=== PATIENT | male | born 1950 | race Caucasian/White ===

== ENCOUNTER 2022-12-25 20:01 | Inpatient (IN) | payer OTHER, MEDICAID ==
[~2022-12-25] VITALS: Ht 167.6 cm; Wt 77.1 kg
[2022-12-25 20:23] VITALS: BP_SYST 140
--- NOTE | 2022-12-25 20:29 | NUR ---
ER at bedside examining patient.
--- NOTE | 2022-12-25 20:29 | NUR ---
Patient triaged and placed in waiting room. VS checked and patient appears in no acute distress at this time. Accompanied by family, awaiting available bed, and MD notified of need for MSE.
--- NOTE | 2022-12-25 21:00 | NUR ---
Pt C/O right lower quadrant pain AOX4 VSS Able to make needs known family at bedside Will continue to monitor
[2022-12-25 21:21] LABS: BASOPHILS % (AUTO) 0.4 % (0.0-2.0); EOSINOPHILS % (AUTO) 0.2 % (0.0-4.0); HEMATOCRIT 35.2 % (36-54); HEMOGLOBIN 11.6 g/dL (14.0-18.0); LYMPHOCYTES # (AUTO) 0.7 K/uL (1.0-5.5); MEAN CORPUSCULAR HEMOGLOBIN 28 pg (27-31); MEAN CORPUSCULAR HGB CONC 33 % (32-36); MEAN CORPUSCULAR VOLUME 85 fL (79.0-98.0); MONOCYTES # (AUTO) 0.4 K/uL (0.0-1.0); MONOCYTES % (AUTO) 3.7 % (1.7-9.3); NEUTROPHILS # (AUTO) 10.7 K/uL (1.8-7.7); NEUTROPHILS % (AUTO) 89.7 % (40.0-70.0); PLATELET COUNT (AUTO) 279 K/uL (130-430); RED BLOOD CELL COUNT(AUTO) 4.16 MIL/uL (4.2-6.2); RED CELL DISTRIBUTION WIDTH 15.4 % (9.0-15.0); WHITE BLOOD COUNT (AUTO) 11.9 K/uL (4.8-10.8)
[2022-12-25 21:45] LABS: ANION GAP 11 (5-15); CALCIUM 8.6 mg/dL (8.4-11.0); CHLORIDE 101 mmol/L (98-107); CREATININE 1.58 mg/dL (0.55-1.30); GLUCOSE 206 mg/dL (70-99); UREA NITROGEN, BLOOD 21 mg/dL (8-21)
[2022-12-25 21:47] LABS: ALANINE AMINOTRANSFERASE 30 U/L (12-78); ALBUMIN 3.5 g/dL (3.4-4.8); ASPARTATE AMINOTRANSFERASE 18 U/L (10-37); LIPASE 35 U/L (73-393)
--- NOTE | 2022-12-25 21:50 | NUR ---
COVID SAMPLE COLLECTED AND SENT TO LAB
[2022-12-25] MEDS ORDERED: PIPERACILLIN/TAZO 3.375 GM in NS 50 ML IV ONE (22:15)
[2022-12-25] MEDS ORDERED: MORPHINE 4 MG INJ. 4 MG/ML VIAL IVP ONE (22:30)
[2022-12-25] MEDS ORDERED: ONDANSETRON HCL 4 MG/2 ML VIAL IVP ONE (22:30)
[2022-12-25 22:41] LABS: BILIRUBIN,URINE 1+ (NEGATIVE); BLOOD, URINE NEGATIVE (NEGATIVE); CLARITY/URINE CLEAR (CLEAR); COLOR,URINE YELLOW (YELLOW); GLUCOSE,URINE NEGATIVE (NEGATIVE); KETONES,URINE 1+ (NEGATIVE); LEUKOCYTE ESTERASE ,URINE NEGATIVE (NEGATIVE); NITRITE, URINE NEGATIVE (NEGATIVE); PROTEIN URINE 2+ (NEGATIVE)
[2022-12-25 22:54] LABS: BACTERIA,URINE None Seen /HPF (None Seen); RBC,URINE 0-3 /HPF (0-3); WBC,URINE 0-3 /HPF (0-3)
[2022-12-25] MEDS ORDERED: PIPERACILLIN/TAZOBACTAM 3.375 GM/VIAL (ZOSYN) IV ONE (23:21)
[2022-12-26] VITALS (9 sets, daily range): BP systolic 100–134
[2022-12-26] MEDS ORDERED: ONDANSETRON HCL 4 MG/2 ML VIAL IVP PRN ×2 (03:15→19:00)
[2022-12-26] MEDS ORDERED: D5/0.45 NS 1,000 ML IV ONE (03:15)
[2022-12-26] MEDS ORDERED: MORPHINE 2 MG/ML INJ. SYRINGE IVP PRN ×2 (03:15→03:30)
[2022-12-26] MEDS ORDERED: OMEG-158 PO (03:50)
[2022-12-26] MEDS ORDERED: ROSU20TA2 PO (03:51)
[2022-12-26] MEDS ORDERED: CALC-1263 PO (03:51)
[2022-12-26] MEDS ORDERED: ASCO500T20 PO (03:52)
[2022-12-26] MEDS ORDERED: TACR1CAP2 PO (03:52)
[2022-12-26] MEDS ORDERED: VITA200C70 PO (03:55)
[2022-12-26] MEDS ORDERED: AMLO5TAB4 PO (03:56)
[2022-12-26] MEDS ORDERED: ASPI-1393 PO (03:56)
[2022-12-26] MEDS ORDERED: CARV3.1246 PO (03:57)
[2022-12-26] MEDS ORDERED: DOCU-144 PO (03:57)
[2022-12-26] MEDS ORDERED: INSU100I73 SUBCUT (03:58)
[2022-12-26] MEDS ORDERED: INSU100V9 SQ (03:59)
[2022-12-26] MEDS ORDERED: CEL250 PO (04:00)
[2022-12-26] MEDS ORDERED: LISI20TA30 PO (04:00)
--- NOTE | 2022-12-26 04:01 | NUR ---
Admit bed requested Patient will be admitted to care of . Admitted to telemetry unit. Diagnosis Acute appendicitis Inpatient (Yes or No) Y Observation (Yes or No) N Orientation concerns or request close to nursing station (Yes or No) N Covid Status Neg On vent or bipap N Isolation requirements N Needs a sitter N From Home (Yes or if No enter name of facility) Y Requires Dialysis (Yes or No) N Med Rec Completed (Yes of No) Y
[2022-12-26] MEDS ORDERED: PIPERACILLIN/TAZOBACTAM 3.375 GM/VIAL (ZOSYN) IV ONE (04:28)
--- NOTE | 2022-12-26 05:00 | NUR ---
ADMISSION NOTE Received patient from ER via gurney. Patient admitted with diagnosis of acute appendiicitis. Patient is awake, alert, oriented X 4. Patient oriented to hospital room, call light, toileting, pain management and safety-teach back done. nNo pain reported. safety checks in place. Personal belongings checked and Belongings List documented. Call light within reach. continue to monitor
--- NOTE | 2022-12-26 05:06 | NUR ---
Patient will be admitted to care of [facility]. Admitted to Tele unit. Will go to room 107A. Belongings list completed. Complete and up to date summary report printed. SBAR report to be given at bedside with opportunity for questions.
--- NOTE | 2022-12-26 05:45 | NUR ---
ILIA COLLECTED MRSA SAMPLE AND DELIVERED AT LAB.
--- NOTE | 2022-12-26 05:46 | NUR ---
CONSULTATION PAGED/CALLED Reason for Consultation: HX OF HEART TRANSPLANT Person Who was Notified: SHIKHA Consulting Physician: KERRY Certified Welding Inspector Specialty: Ordering Physician: LUKE
--- NOTE | 2022-12-26 05:49 | NUR ---
CONSULTATION PAGED/CALLED Reason for Consultation: Acute appendicitis Person Who was Notified: ER SPOKE WITH DR CANO Consulting Physician: DR CANO Sales Representative [employer] Specialty: Ordering Physician: LUKE
--- NOTE | 2022-12-26 05:50 | NUR ---
CONSULTATION PAGED/CALLED Reason for Consultation: Acute appendicitis Person Who was Notified: SHIKHA Consulting Physician: Vu PARR Manager Of Applications Development Specialty: Ordering Physician: LUKE
[2022-12-26] MEDS ORDERED: PIPERACILLIN/TAZO 3.375 GM in NS 50 ML IV SCH (06:00)
--- NOTE | 2022-12-26 06:50 | NUR ---
CLOSING NOTE PT LYING IN BED AND EYES CLOSED. TWO FAMILY MEMBERS AT BEDSIDE. BREATHING EVEN AND NONLABORED ON RA. NO PAIN REPORTED. SAFETY CHECKS IN PLACE. CALL LIGHT IN REACH. ENDORSED TO DAY SHIFT NURSE
[2022-12-26 07:45] LABS: BASOPHILS # (AUTO) 0.1 K/uL (0.0-0.2); BASOPHILS % (AUTO) 0.7 % (0.0-2.0); EOSINOPHILS # (AUTO) 0.1 K/uL (0.0-0.4); EOSINOPHILS % (AUTO) 0.6 % (0.0-4.0); HEMATOCRIT 31.7 % (36-54); HEMOGLOBIN 10.6 g/dL (14.0-18.0); LYMPHOCYTES # (AUTO) 0.7 K/uL (1.0-5.5); LYMPHOCYTES % (AUTO) 5.9 % (20.5-51.5); MEAN CORPUSCULAR HEMOGLOBIN 28 pg (27-31); MEAN CORPUSCULAR HGB CONC 33 % (32-36); MEAN CORPUSCULAR VOLUME 84 fL (79.0-98.0); MONOCYTES % (AUTO) 7.8 % (1.7-9.3); NEUTROPHILS # (AUTO) 10.3 K/uL (1.8-7.7); PLATELET COUNT (AUTO) 267 K/uL (130-430); RED BLOOD CELL COUNT(AUTO) 3.78 MIL/uL (4.2-6.2); RED CELL DISTRIBUTION WIDTH 14.9 % (9.0-15.0); WHITE BLOOD COUNT (AUTO) 12.2 K/uL (4.8-10.8)
[2022-12-26 07:52] LABS: ANION GAP 11 (5-15); CALCIUM 7.8 mg/dL (8.4-11.0); CHLORIDE 104 mmol/L (98-107); GLUCOSE 155 mg/dL (70-99); UREA NITROGEN, BLOOD 23 mg/dL (8-21)
[2022-12-26 07:56] LABS: ALANINE AMINOTRANSFERASE 28 U/L (12-78); ASPARTATE AMINOTRANSFERASE 22 U/L (10-37); CHOLESTEROL 139 mg/dL (<200); HDL CHOLESTEROL 30 mg/dL (>45); LIPASE 31 U/L (73-393); TOTAL BILIRUBIN 2.2 mg/dL (0.0-1.0); TRIGLYCERIDES 122 mg/dL (30-150)
[2022-12-26 07:57] LABS: INR 1.1 (0.80-1.20); PROTHROMBIN TIME 10.9 SECS (9.5-12.5)
--- NOTE | 2022-12-26 08:00 | NUR ---
Start of shift Pt lying in bed with tele unit attached and intact. RFA IV intact and patent infusing IVF's well. Pt's and daughter at bedside. Pt's bed in low position and bed alarm on. Pt has been NPO since admission for surgery today. Call light within reach.
[2022-12-26] MEDS ORDERED: ROSUVASTATIN CALCIUM 5 MG/TAB (CRESTOR) PO SCH (09:00)
[2022-12-26] MEDS: CARVEDILOL 3.125 MG TABLET (COREG) PO SCH ×2 (09:00→21:32)
[2022-12-26] MEDS: TACROLIMUS ANHYDROUS 1 MG CAPSULE (PROGRAF) PO SCH ×2 (09:00→21:32)
[2022-12-26] MEDS: ATORVASTATIN 20 MG TABLET PO SCH (09:00)
[2022-12-26] MEDS: mycophenolate mofetiL 250 MG CAPSULE PO SCH ×2 (09:00→21:30)
[2022-12-26] MEDS: FUROSEMIDE 20 MG/2 ML VIAL IVP ONE ×2 (10:52→10:57)
--- NOTE | 2022-12-26 11:00 | NUR ---
Note Pt's and daughter left bedside at 1010am and will be back this afternoon. 0725am - Dr Baig (surgeon) at bedside assessing pt and checking labs/tests at this time. Surgery explained to pt and - his and his daughter. 0735am - Dr Leblanc at bedside to assess pt. 0907am - Dr Brown at bedside to assess pt and answer questions/concerns. 1010am - Dr Stout called and informed there is no H&P on [facility] at this time - pt to go to surgery around 5pm. Pt resting in bed at this time, no needs noted. Call light within reach.
--- NOTE | 2022-12-26 12:30 | NUR ---
Note Dr Leblanc was called to see if pt was cleared for surgery from cardiac point of view. Dr Leblanc cleared pt for surgery and requested pt's IVF's be decreased from 75cc/hr to 40cc/hr. Pt's IVF's were decreased to 40cc/hr and pt voided 200cc in urinal. Pt stable, no abdominal pain/discomfort noted at this time. Call light within reach.
--- NOTE | 2022-12-26 12:42 | NUR ---
Note Called Dr Arias and informed that pt cleared for surgery. OR will be at 4pm.
[2022-12-26] MEDS: PIPERACILLIN/TAZOBACTAM 3.375 GM/ D5W 50 ML IV SCH ×4 (13:55→21:34)
--- NOTE | 2022-12-26 14:00 | NUR ---
Note Received a call from [facility] Transfer center - that we will not be transferring pt to [facility] for "Lap Appy" at this time, should there be a reason for transfer then we can call [facility] for a bed.
--- NOTE | 2022-12-26 16:10 | NUR ---
Note Dr Cobos (anesthesiologist) was at pt's bedside at 1550, speaking to pt and pt's family about anesthesiology and questions/concerns were answered. SENIOR MEDICAL DIRECTOR was in room at pt's bedside speaking to pt and pt's family - answering questions/concerns at 1610
--- NOTE | 2022-12-26 16:47 | NUR ---
Pt off the floor via bed to OR Addendum: 12/26/22 at 1649 by Kira Rashid RN Family at bedside and will wait in OR waiting room for surgeon to speak to them after surgery. IVF's were saline locked before pt went to surgery
--- NOTE | 2022-12-26 18:49 | NUR ---
Recovery Room Pt will go to ICU after surgery
[2022-12-26] MEDS ORDERED: NALOXONE HCL 0.4 MG/ML AMP (NARCAN) IVP PRN (19:00)
[2022-12-26] MEDS ORDERED: HYDROmorphone 1 MG/ML INJ. CARTRIDGE IVP PRN (19:00)
[2022-12-26] MEDS ORDERED: SEVOFLURANE 15 MIN GAS INH ONE (19:04)
[2022-12-26] MEDS ORDERED: NS IRRIG SOLN 1000 ML IR ONE (19:04)
[2022-12-26] MEDS ORDERED: METOCLOPRAMIDE HCL 10 MG/2 ML VIAL ONE (19:04)
[2022-12-26] MEDS ORDERED: WATER FOR IRRIGATION,STERILE 1,000 ML IRRIG.SOLN IR ONE (19:04)
[2022-12-26] MEDS ORDERED: PROPOFOL 200MG/ 20ML VIAL (DIPRIVAN) IV ONE (19:04)
[2022-12-26] MEDS ORDERED: ONDANSETRON HCL 4 MG/2 ML VIAL ONE (19:04)
[2022-12-26] MEDS ORDERED: LR 1,000 ML IV.SOLN IV ONE (19:04)
[2022-12-26] MEDS ORDERED: NS 1000 ML IV.SOLN IV ONE (19:04)
[2022-12-26] MEDS ORDERED: ROCURONIUM BROMIDE 10 MG/ML (ZEMURON) ONE (19:04)
[2022-12-26] MEDS ORDERED: fentaNYL CITRATE/PF 100 MCG/2 ML AMP ONE (19:04)
[2022-12-26] MEDS ORDERED: SUGAMMADEX SODIUM 200 MG/2 ML VIAL IV ONE (19:04)
[2022-12-26] MEDS ORDERED: ePHEDrine sulfate 50 MG/ML VIAL ONE (19:04)
[2022-12-26] MEDS ORDERED: MORPHINE 4 MG INJ. 4 MG/ML VIAL IVP PRN (19:30)
--- NOTE | 2022-12-26 20:36 | NUR ---
RECEIVED PATIENT FROM OR, S/P LAPARAOSCOPIC APPENDECTOMY. PATIENT IS AAO X3, FOLLOWS COMMANDS WELL. ON 3LPM PER NC O2, SAT 98%. PRICING ANALYST IS SHOWING NST, DENIES CHEST PAIN. BLOOD PRESSURE 125/70, AFEBRILE, 98.5. LEFT RADIAL NELY HOOKED TO MONITOR ZEROED AND CALIBRATED. CORRELATING WITH NBP. ABDOMINAL DRESSINGS,X 3, DRY AND INTACT. PATIENT HAS MIRANDA INTACT AND PATENT, DRAINING CLEMENCIA COLOR URINE. BILATERAL SCD'S ARE ON. ABLE TO USE IS PROPERLY, PULLED IN 1500 ML X 10 WHILE AWAKE. FAMILY CAME TO VISIT AND UPDATED.
[2022-12-27] VITALS (24 sets, daily range): BP systolic 89–126
[2022-12-27 04:44] LABS: BASOPHILS % (AUTO) 0.3 % (0.0-2.0); EOSINOPHILS % (AUTO) 0.1 % (0.0-4.0); HEMATOCRIT 32.2 % (36-54); HEMOGLOBIN 10.6 g/dL (14.0-18.0); LYMPHOCYTES # (AUTO) 0.9 K/uL (1.0-5.5); LYMPHOCYTES % (AUTO) 6.2 % (20.5-51.5); MEAN CORPUSCULAR HEMOGLOBIN 28 pg (27-31); MEAN CORPUSCULAR HGB CONC 33 % (32-36); MEAN CORPUSCULAR VOLUME 85 fL (79.0-98.0); MONOCYTES # (AUTO) 0.9 K/uL (0.0-1.0); MONOCYTES % (AUTO) 6.3 % (1.7-9.3); NEUTROPHILS # (AUTO) 13.1 K/uL (1.8-7.7); NEUTROPHILS % (AUTO) 87.1 % (40.0-70.0); PLATELET COUNT (AUTO) 270 K/uL (130-430); RED BLOOD CELL COUNT(AUTO) 3.79 MIL/uL (4.2-6.2); RED CELL DISTRIBUTION WIDTH 15.4 % (9.0-15.0); WHITE BLOOD COUNT (AUTO) 15.1 K/uL (4.8-10.8)
[2022-12-27 05:08] LABS: ALANINE AMINOTRANSFERASE 33 U/L (12-78); ALBUMIN 2.9 g/dL (3.4-4.8); ANION GAP 14 (5-15); ASPARTATE AMINOTRANSFERASE 23 U/L (10-37); CALCIUM 7.7 mg/dL (8.4-11.0); CHLORIDE 103 mmol/L (98-107); CREATININE 2.97 mg/dL (0.55-1.30); GLUCOSE 170 mg/dL (70-99); TOTAL BILIRUBIN 2.5 mg/dL (0.0-1.0); UREA NITROGEN, BLOOD 34 mg/dL (8-21)
[2022-12-27] MEDS: PIPERACILLIN/TAZOBACTAM 3.375 GM/ D5W 50 ML IV SCH ×4 (08:19→16:06)
[2022-12-27] MEDS: mycophenolate mofetiL 250 MG CAPSULE PO SCH ×2 (08:20→21:59)
[2022-12-27] MEDS: ATORVASTATIN 20 MG TABLET PO SCH (08:20)
[2022-12-27] MEDS: TACROLIMUS ANHYDROUS 1 MG CAPSULE (PROGRAF) PO SCH ×2 (08:20→21:59)
[2022-12-27] MEDS: CARVEDILOL 3.125 MG TABLET (COREG) PO SCH ×2 (08:21→21:59)
[2022-12-27] MEDS: NACL 0.9% 1,000 ML IV SCH ×2 (09:11→18:25)
--- NOTE | 2022-12-27 09:50 | NUR ---
Referral sent to [facility] per Dr Leblanc's request due to possible cardiac transplant rejection. Spoke to Bean, he requested medical records and transfer back agreement. phone [phone]/FAX [phone]. Patient's cardio thoracic surgeon at [facility] is Dr Dotson [phone]
[2022-12-27] MEDS ORDERED: traMADol HCL HCL 50 MG TABLET (ULTRAM) PO PRN (12:45)
--- NOTE | 2022-12-27 13:53 | NUR ---
Called Dr. Still with a consult Wilfredo Blankenship covering today
--- NOTE | 2022-12-27 14:38 | NUR ---
Faxed echocardiogram results FAXED to [facility]-followed up with status of transfer for patient. Patient is accepted at [facility]-they will call when a bed is available.
--- NOTE | 2022-12-27 15:42 | NUR ---
[facility] on will call -[facility] will call with room number when bed is available. Transfer packet w/radiology disc taken to RN in ICU.
[2022-12-27] MEDS: methylPREDNISolone SOD SUCC/PF 62.5 MG/ML VIAL IVP SCH (16:08)
[2022-12-27 16:26] LABS: CLARITY/URINE SLIGHTLY CLOUDY (CLEAR); COLOR,URINE YELLOW (YELLOW); PH,URINE 5.5 (5.0-8.0); PROTEIN URINE 2+ (NEGATIVE)
[2022-12-27 16:27] LABS: BILIRUBIN,URINE 1+ (NEGATIVE); BLOOD, URINE 3+ (NEGATIVE); GLUCOSE,URINE NEGATIVE (NEGATIVE); KETONES,URINE TRACE (NEGATIVE); LEUKOCYTE ESTERASE ,URINE TRACE (NEGATIVE); NITRITE, URINE NEGATIVE (NEGATIVE)
[2022-12-27 16:29] LABS: BACTERIA,URINE FEW /HPF (None Seen); MUCUS,URINE None Seen /LPF (None Seen); RBC,URINE 80-100 /HPF (0-3)
--- NOTE | 2022-12-27 21:40 | NUR ---
dr bravo notified of patients [id number] after family notified undersigned that the patient is diabetic and usually on long-acting insulin injections which he has not received here. New orders received. Updated on patients condition including low UOP.
[2022-12-27] MEDS: INSULIN REGULAR, HUMAN 100 UNITS/ML, 3 ML VIAL (humuLIN R) SUBCUT PRN (22:01)
--- NOTE | 2022-12-27 22:25 | NUR ---
Alan contacted again to check on bed availability. Stated the bed would be available no sooner that tomorrow morning. Family updated.
[2022-12-28] VITALS (15 sets, daily range): BP systolic 101–136
[2022-12-28] MEDS ORDERED: PIPERACILLIN/TAZOBACTAM 2.25 GM VIAL IV ONE (00:43)
[2022-12-28] MEDS: D5W IV SCH ×3 (02:31→14:57)
[2022-12-28] MEDS: PIPERACILLIN IV SCH ×3 (02:31→14:57)
[2022-12-28] MEDS: TAZO IV SCH ×3 (02:31→14:57)
[2022-12-28 05:23] LABS: BASOPHILS % (AUTO) 0.1 % (0.0-2.0); HEMATOCRIT 33.3 % (36-54); HEMOGLOBIN 10.9 g/dL (14.0-18.0); LYMPHOCYTES # (AUTO) 0.5 K/uL (1.0-5.5); LYMPHOCYTES % (AUTO) 4.5 % (20.5-51.5); MEAN CORPUSCULAR HEMOGLOBIN 28 pg (27-31); MEAN CORPUSCULAR HGB CONC 33 % (32-36); MEAN CORPUSCULAR VOLUME 85 fL (79.0-98.0); MONOCYTES # (AUTO) 0.1 K/uL (0.0-1.0); MONOCYTES % (AUTO) 1.3 % (1.7-9.3); NEUTROPHILS # (AUTO) 9.8 K/uL (1.8-7.7); NEUTROPHILS % (AUTO) 94.1 % (40.0-70.0); PLATELET COUNT (AUTO) 246 K/uL (130-430); RED BLOOD CELL COUNT(AUTO) 3.91 MIL/uL (4.2-6.2); RED CELL DISTRIBUTION WIDTH 15.7 % (9.0-15.0); WHITE BLOOD COUNT (AUTO) 10.4 K/uL (4.8-10.8)
[2022-12-28 05:37] LABS: ALANINE AMINOTRANSFERASE 13 U/L (12-78); ALBUMIN 2.6 g/dL (3.4-4.8); ANION GAP 15 (5-15); ASPARTATE AMINOTRANSFERASE 11 U/L (10-37); CALCIUM 7.3 mg/dL (8.4-11.0); CHLORIDE 101 mmol/L (98-107); PHOSPHORUS 5.6 mg/dL (2.7-4.5); TOTAL BILIRUBIN 1.7 mg/dL (0.0-1.0); UREA NITROGEN, BLOOD 45 mg/dL (8-21); URIC ACID 7.1 mg/dL (2.4-7.0)
[2022-12-28 05:45] LABS: GLUCOSE 425 mg/dL (70-99)
[2022-12-28] MEDS: INSULIN REGULAR, HUMAN 100 UNITS/ML, 3 ML VIAL (humuLIN R) SUBCUT PRN ×2 (06:24→12:57)
[2022-12-28] MEDS: NACL 0.9% 1,000 ML IV SCH (06:25)
[2022-12-28] MEDS ORDERED: NACL 0.9% 1,000 ML IV SCH (07:15)
[2022-12-28] MEDS ORDERED: SEVELAMER CARBONATE 800 MG TABLET PO ONE (08:15)
[2022-12-28] MEDS ORDERED: DOPamine PREMIX 250 ML IV PRN (08:45)
[2022-12-28] MEDS ORDERED: COMMUNICATION ORDER XX ONE (08:45)
[2022-12-28] MEDS: mycophenolate mofetiL 250 MG CAPSULE PO SCH (09:00)
[2022-12-28] MEDS: ATORVASTATIN 20 MG TABLET PO SCH (09:01)
[2022-12-28] MEDS: TACROLIMUS ANHYDROUS 1 MG CAPSULE (PROGRAF) PO SCH (09:01)
[2022-12-28] MEDS: CARVEDILOL 3.125 MG TABLET (COREG) PO SCH (09:02)
[2022-12-28] MEDS ORDERED: DOPamine PREMIX 250 ML IV SCH (09:30)
[2022-12-28] MEDS ORDERED: SEVELAMER CARBONATE 800 MG TABLET PO SCH (12:00)
--- NOTE | 2022-12-28 12:00 | NUR ---
[facility] CALLED UP AMBULANCE, SPOKE TO RJ, DISPATCHER. PT TO BE TRANSPORTED TO [facility] IN [place]. THEY WILL BE WAITING FOR THE LETTER OF AGREEMENT TO BE FAXED TO THEIR OFFICE. SIMON BAIT MAN AWARE, AND NURSING LEAD PRODUCER LOLI.
--- NOTE | 2022-12-28 12:52 | NUR ---
CM: Coordinated with House Jocy/Ann and EDUCATIONAL COORDINATOR/Karey : getting CYNTHIA for [facility] , ALS transportation. Per Alyssa/[facility], Distance from [facility] to [facility] is 38 miles, Medicare covers for 27 miles. The CYNTHIA is needed for 11 miles if [facility] could not claim the secondary ins. I notified Avani, Director , she approved the CYNTHIA. The CYNTHIA form signed by Ann and faxed to Alyssa. The original CYNTHIA placed on pt's chart and the copy provided to Avani.
--- NOTE | 2022-12-28 14:30 | NUR ---
Patient picked up by [facility] Transport for scheduled transfer to [facility]. Patient VS stable at time of pickup. Telephone report given to [facility] RN [facility] Transfer [facility] Coordinator Bean. End of care.
[2022-12-28] MEDS: methylPREDNISolone SOD SUCC/PF 62.5 MG/ML VIAL IVP SCH (14:57)
[2023-01-07 10:47] LABS: TACROLIMUS (FK506) 4.5 ng/ml (2.0-20.0)
== END 2022-12-28 14:30 | disposition short-term general hospital (02) | DRG 853 ==
LOC: SED 20:01 → STU 12-26 03:07 → SIC 12-26 20:59
PROVIDERS: ADMIT Internal Medicine; ATTEND Internal Medicine
PROC: 0DTJ4ZZ Resection of Appendix, Percutaneous Endoscopic Approach (ICD-10-PCS; principal; 2022-12-27)
DX: A41.9 Sepsis, unspecified organism (principal); N17.0 Acute kidney failure with tubular necrosis; K35.80 Unspecified acute appendicitis; E87.20 Acidosis, unspecified; I25.811 Atherosclerosis of native coronary artery of transplanted heart without angina pectoris; I13.0 Hypertensive heart and chronic kidney disease with heart failure and stage 1 through stage 4 chronic kidney disease, or unspecified chronic kidney disease; K56.41 Fecal impaction; Z20.822 Contact with and (suspected) exposure to COVID-19; I50.9 Heart failure, unspecified; N18.30 Chronic kidney disease, stage 3 unspecified; E11.22 Type 2 diabetes mellitus with diabetic chronic kidney disease; E83.39 Other disorders of phosphorus metabolism; E78.5 Hyperlipidemia, unspecified; I25.5 Ischemic cardiomyopathy; Z88.8 Allergy status to other drugs, medicaments and biological substances; Z79.899 Other long term (current) drug therapy; I25.2 Old myocardial infarction; Z79.82 Long term (current) use of aspirin; Z79.4 Long term (current) use of insulin; Z86.73 Personal history of transient ischemic attack (TIA), and cerebral infarction without residual deficits; Z87.11 Personal history of peptic ulcer disease; Z90.49 Acquired absence of other specified parts of digestive tract; Z95.1 Presence of aortocoronary bypass graft; Z95.810 Presence of automatic (implantable) cardiac defibrillator
CPT/HCPCS: 36415; 71045; 76376; 76770; 80048; 80053; 80061; 80197; 81000; 82962; 83690; 83735; 83880; 84100; 84484; 84550; 85025; 85610-TC; 85730-TC; 86886; 86900; 86901; 87040; 87081; 88304; 93005; 93306; 94010; 96365; 96375; 99285; C1727; J1265; J1815; J1940; J2270; J2405; J2543; J2704; J2765; J2930; J3010; J3490; J7030; J7060; J7120; J7507; J7517